=== PATIENT | female | born 1935 | race Caucasian/White ===

== ENCOUNTER 2022-05-04 13:46 | Emergency (ER) | payer OTHER ==
[~2022-05-04] VITALS: Ht 162.6 cm; Wt 54.4 kg
[2022-05-04] MEDS ORDERED: LEVOTHYROXINE25 MCG (15:11)
[2022-05-04] MEDS ORDERED: GLUMETZA500 MG (15:11)
[2022-05-04] MEDS ORDERED: [UNRECOGNIZED DRUG - OTHER] (15:12)
== END 2022-05-04 17:06 | disposition left against medical advice (07) ==
LOC: ER 13:46
DX: Z53.21 Procedure and treatment not carried out due to patient leaving prior to being seen by health care provider (principal)